=== PATIENT | female | born 1990 | race Caucasian/White ===

== ENCOUNTER 2017-07-02 19:35 | Emergency (ER) | payer BC ==
[2017-07-02] MEDS ORDERED: KETOROLAC TROMETHAMINE 30 MG/ML SOL IM ONE (20:00)
[2017-07-02] MEDS ORDERED: ONDANSETRON 4 MG ODT BU ONE (20:01)
[2017-07-02] MEDS ORDERED: HYDROXYZINE HYDROCHLORIDE 25 MG/ML SOL IM ONE (20:01)
[2017-07-02] MEDS ORDERED: PROMETHAZINE HYDROCHLORIDE 25 MG/ML SOL IM ONE (20:02)
[2017-07-02] MEDS ORDERED: PROMETHAZINE HYDROCHLORIDE 25 MG/ML SOL ONE ×2 (20:04→21:11)
[2017-07-02] MEDS ORDERED: ONDANSETRON 4 MG ODT ONE (20:04)
[2017-07-02] MEDS ORDERED: KETOROLAC TROMETHAMINE 30 MG/ML SOL ONE (20:04)
[2017-07-02 20:07] VITALS: RESP 20
[2017-07-02] MEDS ORDERED: PROMETHAZINE HYDROCHLORIDE 25 MG/ML SOL IV ONE (20:53)
[2017-07-02] MEDS ORDERED: SODIUM CHLORIDE 0.9% 1000ML 1,000 ML IV SCH (21:00)
[2017-07-02 21:48] VITALS: BP 131/88; PULSE 81; TEMP 97.7; O2SAT 99
== END 2017-07-02 21:49 | disposition home or self-care (01) ==
LOC: ED 19:35
DX: G43.909 Migraine, unspecified, not intractable, without status migrainosus (principal)
CPT/HCPCS: 96365; 96372; 96374; 99284; J1885; J2550; A9270-GY

== ENCOUNTER 2018-04-27 17:03 | Emergency (ER) | payer OTHER ==
[2018-04-27 17:16] VITALS: TEMP 97.4
[2018-04-27] MEDS ORDERED: POTASSIUM CHLORIDE 2 MEQ/ML SOL IV ONE ×3 (17:35→19:07)
[2018-04-27] MEDS ORDERED: SODIUM CHLORIDE 0.45% 1000 ML 1,000 ML IV ONE (17:35)
[2018-04-27] MEDS ORDERED: POTASSIUM CHLORIDE 10 MEQ TER PO ONE (17:53)
[2018-04-27] MEDS ORDERED: ONDANSETRON HCL 4 MG/2 ML SOL IV ONE ×2 (17:54→20:12)
[2018-04-27] MEDS ORDERED: ONDANSETRON HCL 4 MG/2 ML SOL ONE ×2 (17:55→20:15)
[2018-04-27] MEDS ORDERED: ALUMINUM/MAGNESIUM 30 ML SUS PO ONE (18:41)
[2018-04-27] MEDS ORDERED: LIDOCAINE HCL 2% (VISCOUS) 20 ML SOL MT ONE (18:42)
[2018-04-27] MEDS ORDERED: LIDOCAINE HCL 2% (VISCOUS) 20 ML SOL ONE (18:44)
[2018-04-27] MEDS ORDERED: ALUMINUM/MAGNESIUM 30 ML SUS ONE (18:44)
[2018-04-27] MEDS ORDERED: POTASSIUM CHLORIDE 10 MEQ TER ONE (18:55)
[2018-04-27] MEDS ORDERED: SODIUM CHLORIDE IV ONE (18:58)
[2018-04-27] MEDS ORDERED: POTASSIUM CHLORIDE IV ONE (18:58)
[2018-04-27 21:19] VITALS: O2SAT 100
[2018-04-27 21:20] VITALS: BP 107/67; PULSE 119; RESP 18
== END 2018-04-27 21:09 | disposition home or self-care (01) ==
LOC: ED 17:03
DX: K52.9 Noninfective gastroenteritis and colitis, unspecified (principal); E87.6 Hypokalemia; Z3A.27 27 weeks gestation of pregnancy
CPT/HCPCS: 93005; 96365; 96366; 96374; 99284; 99285; J2405; J3480; A9270-GY

== ENCOUNTER 2018-06-28 03:32 | Inpatient (IN) | payer BC, OTHER ==
[2018-06-28] MEDS ORDERED: LACTATED RINGERS 1,000 ML IV PRN (04:39)
[2018-06-28] MEDS ORDERED: OXYTOCIN 10000 MU/ML SOL IM PRN (04:39)
[2018-06-28] MEDS ORDERED: METHYLERGONOVINE MALEATE 0.2 MG/ML SOL IM PRN (04:39)
[2018-06-28] MEDS ORDERED: MEPIVACAINE HCL 1% MPF 30 ML/VIAL SOL INFIL PRN (04:39)
[2018-06-28] MEDS ORDERED: CARBOPROST 250 MCG/ML SOL IM PRN (04:39)
[2018-06-28] MEDS ORDERED: SODIUM CHLORIDE 0.9% FLUSH 10 ML SOL IV PRN (04:39)
[2018-06-28] MEDS ORDERED: FENTANYL 100MCG/2ML SOL IV PRN (04:39)
[2018-06-28 04:55] LABS: BASOPHILS % (AUTO) 1 % (0-3); EOSINOPHILS % (AUTO) 0 % (0-9); HEMATOCRIT 34 % (35-47); HEMOGLOBIN 11.7 gm/dl (12.0-15.5); LYMPHOCYTES % (AUTO) 14.4 % (10-50); MEAN CORPUSCULAR HEMOGLOBIN 29.8 pg (27.0-32.0); MEAN CORPUSCULAR HGB CONC 34.2 gm/dl (32.0-36.0); MEAN CORPUSCULAR VOLUME 87 fL (81-99)
[2018-06-28] MEDS: SODIUM CHLORIDE 0.9% FLUSH 10 ML SOL IV SCH ×3 (05:15→20:45)
[2018-06-28] MEDS ORDERED: ROPIVACAINE HYDROCHLORIDE 5 MG/ML SOL ONE ×2 (05:29→16:24)
[2018-06-28] MEDS ORDERED: TERBUTALINE SULFATE 1 MG/ML SOL SC PRN (13:10)
[2018-06-28] MEDS ORDERED: OXYTOCIN 10000 MU/ML 20,000 MU in LACTATED RINGERS 1,000 ML IV SCH (13:15)
[2018-06-28] MEDS ORDERED: LACTATED RINGERS 1,000 ML IV SCH (13:15)
[2018-06-28] MEDS ORDERED: OXYTOCIN 10000 MU/ML SOL ONE (13:23)
[2018-06-28] MEDS: LACTATED RINGERS 1,000 ML IV SCH ×2 (15:16→16:00)
[2018-06-28] MEDS ORDERED: NALBUPHINE HCL 20 MG/ML SOL IV PRN (15:29)
[2018-06-28] MEDS ORDERED: EPHEDRINE SULFATE 50 MG/ML SOL IV PRN (15:29)
[2018-06-28] MEDS ORDERED: NALOXONE HYDROCHLORIDE 0.4 MG/ML SOL IV PRN (15:29)
[2018-06-28] MEDS ORDERED: DIPHENHYDRAMINE 50 MG/ML SOL IV PRN (15:29)
[2018-06-28] MEDS ORDERED: LIDOCAINE HCL 2% MPF 10 ML SOL ONE (15:45)
[2018-06-28] MEDS ORDERED: FENTANYL 250 MCG/ 5ML SOL ONE (16:23)
[2018-06-28] MEDS ORDERED: ONDANSETRON HCL 4 MG/2 ML SOL IV PRN (20:30)
[2018-06-29] MEDS ORDERED: RANITIDINE HCL 150 MG TAB PO ONE (03:12)
[2018-06-29] MEDS ORDERED: ALUMINUM/MAGNESIUM 30 ML SUS PO ONE (03:12)
[2018-06-29] MEDS ORDERED: BUPIVACAINE HCL IN DEXTROSE/PF 2 ML AMPUL IJ ONE (03:54)
[2018-06-29] MEDS ORDERED: CEFAZOLIN SODIUM 1 GM PDS ONE (03:57)
[2018-06-29] MEDS ORDERED: PHENYLEPHRINE HYDROCHLORIDE 10 MG/ML SOL ONE (03:57)
[2018-06-29] MEDS ORDERED: OXYTOCIN 10000 MU/ML SOL ONE (03:57)
[2018-06-29] MEDS ORDERED: AZITHROMYCIN 500 MG PDS IV ONE (03:57)
[2018-06-29] MEDS ORDERED: FENTANYL 100MCG/2ML SOL ONE (03:57)
[2018-06-29] MEDS ORDERED: ONDANSETRON HCL 4 MG/2 ML SOL ONE (03:57)
[2018-06-29] MEDS ORDERED: BUPIVACAINE/EPI 0.25% 50 ML SOL ONE (04:24)
[2018-06-29] MEDS ORDERED: CITRIC ACID/SODIUM CITRATE SOL PO ONE (04:30)
[2018-06-29] MEDS ORDERED: DEXAMETHASONE 20 MG/5 ML (4 MG/ML SOL) ONE (05:21)
[2018-06-29] MEDS ORDERED: LACTATED RINGERS 1,000 ML with OXYTOCIN 10000 MU/ML 20 MU IV ONE (05:24)
[2018-06-29] MEDS ORDERED: BENZOCAINE/MENTHOL 1 SPR TOP PRN (06:05)
[2018-06-29] MEDS ORDERED: METHYLERGONOVINE MALEATE 0.2 MG TAB PO PRN (06:05)
[2018-06-29] MEDS ORDERED: WITCH HAZEL 1 EA PAD TOP PRN (06:05)
[2018-06-29] MEDS ORDERED: FLEET ENEMA PR PRN (06:05)
[2018-06-29] MEDS ORDERED: BISACODYL 10 MG SUP PR PRN (06:05)
[2018-06-29] MEDS ORDERED: TEMAZEPAM 15MG 15 MG CAP PO PRN (06:05)
[2018-06-29] MEDS ORDERED: DIPHENHYDRAMINE 25 MG CAP PO PRN (06:05)
[2018-06-29] MEDS ORDERED: ONDANSETRON HCL 4 MG/2 ML SOL IV PRN (06:05)
[2018-06-29] MEDS: LACTATED RINGERS 1,000 ML IV SCH ×4 (07:04→13:55)
[2018-06-29] MEDS: KETOROLAC TROMETHAMINE 30 MG/ML SOL IV PRN ×2 (08:17→20:30)
[2018-06-29] MEDS: SODIUM CHLORIDE 0.9% FLUSH 10 ML SOL IV SCH ×2 (08:18→18:25)
[2018-06-29] MEDS ORDERED: IRON FUMARATE PO SCH (09:00)
[2018-06-29] MEDS ORDERED: [UNRECOGNIZED DRUG - OTHER] PO SCH (09:00)
[2018-06-29] MEDS ORDERED: PRENATAL VIT PO SCH (09:00)
[2018-06-29] MEDS: APAP/HYDROCODONE 1 EACH TABLET PO PRN ×3 (11:20→22:05)
[2018-06-29] MEDS: FOLIC ACID 1 MG TAB PO SCH (11:57)
[2018-06-29] MEDS: DOCUSATE SODIUM 100 MG SGL PO SCH ×2 (11:57→20:30)
[2018-06-29] MEDS: MULTIVITAMIN2 1 EA TAB PO SCH (11:57)
[2018-06-30] MEDS: LACTATED RINGERS 1,000 ML IV SCH ×2 (02:00→06:12)
[2018-06-30] MEDS: SODIUM CHLORIDE 0.9% FLUSH 10 ML SOL IV SCH ×3 (04:05→13:12)
[2018-06-30] MEDS: APAP/HYDROCODONE 1 EACH TABLET PO PRN ×3 (05:12→13:11)
[2018-06-30] MEDS: IBUPROFEN 600 MG TAB PO PRN ×2 (06:05→13:11)
[2018-06-30 07:41] VITALS: BP 128/82; PULSE 82; RESP 20; TEMP 97.4; O2SAT 96
[2018-06-30] MEDS: DOCUSATE SODIUM 100 MG SGL PO SCH (08:19)
[2018-06-30] MEDS: MULTIVITAMIN2 1 EA TAB PO SCH (08:20)
[2018-06-30] MEDS: FOLIC ACID 1 MG TAB PO SCH (08:20)
== END 2018-06-30 13:33 | disposition home or self-care (01) | DRG 540 ==
LOC: ED 03:32 → OB 04:36
PROVIDERS: ADMIT Family Medicine; ATTEND Family Medicine
PROC: 10D00Z1 Extraction of Products of Conception, Low, Open Approach (ICD-10-PCS; principal; 2018-06-29 04:10)
DX: O42.013 Preterm premature rupture of membranes, onset of labor within 24 hours of rupture, third trimester (principal); O61.8 Other failed induction of labor; Z37.0 Single live birth; Z3A.36 36 weeks gestation of pregnancy; O69.81X0 Labor and delivery complicated by cord around neck, without compression, not applicable or unspecified; O62.1 Secondary uterine inertia
CPT/HCPCS: 36415; 59025; 84112; 85018; 85025; 99070; 99283; J0456; J0690; J1100; J1885; J2405; J2590; J2795; J3010; J3105; A9270-GY; J2370

== ENCOUNTER 2018-12-17 04:54 | Emergency (ER) | payer OTHER ==
[2018-12-17] MEDS ORDERED: PROMETHAZINE HYDROCHLORIDE 25 MG/ML SOL IV ONE (05:14)
[2018-12-17] MEDS ORDERED: KETOROLAC TROMETHAMINE 30 MG/ML SOL IV ONE (05:14)
[2018-12-17 05:15] VITALS: RESP 18; TEMP 97.5
[2018-12-17] MEDS ORDERED: SODIUM CHLORIDE 0.9% 1000ML 1,000 ML IV SCH (05:15)
[2018-12-17] MEDS ORDERED: ONDANSETRON HCL 4 MG/2 ML SOL IV PRN (05:15)
[2018-12-17] MEDS ORDERED: KETOROLAC TROMETHAMINE 30 MG/ML SOL ONE (05:19)
[2018-12-17] MEDS ORDERED: PROMETHAZINE HYDROCHLORIDE 25 MG/ML SOL ONE (05:19)
[2018-12-17 06:35] VITALS: BP 104/67; PULSE 74; O2SAT 97
== END 2018-12-17 06:30 | disposition home or self-care (01) ==
LOC: ED 04:54
DX: G43.909 Migraine, unspecified, not intractable, without status migrainosus (principal)
CPT/HCPCS: 96365; 96374; 96375; 99282; 99283; J1885; J2550